=== PATIENT | male | born 1945 | race Caucasian/White ===

== ENCOUNTER 2020-03-26 14:30 | Emergency (ER) | payer OTHER ==
[~2020-03-26] VITALS: Ht 177.8 cm; Wt 66.7 kg
[2020-03-26] MEDS ORDERED: ZESTRIL40 MG PO (14:50)
[2020-03-26] MEDS ORDERED: NORVASC5 M1 PO (14:50)
[2020-03-26] MEDS ORDERED: OMEPRAZOLE40 MG PO (14:51)
[2020-03-26] MEDS ORDERED: LIPITOR 20 MG T20 M1 PO (14:51)
[2020-03-26] MEDS ORDERED: TOPROL XL50 MG PO (14:51)
[2020-03-26] MEDS ORDERED: SINGULAIR 10 MG10 M1 PO (14:52)
[2020-03-26] MEDS ORDERED: FOLIC ACID1 MG PO (14:52)
[2020-03-26 15:19] LABS: ABSOLUTE BASOPHILS 0.1 thou/uL (0.0-0.2); ABSOLUTE EOSINOPHILS 0.1 thou/uL (0.0-0.7); ABSOLUTE LYMPHOCYTES 1.5 thou/uL (0.8-5.3); ABSOLUTE MONOCYTES 0.9 thou/uL (0.0-1.2); ABSOLUTE NEUTROPHILS 6.1 thou/uL (1.6-8.1); BASOPHILS 0.7 %; EOSINOPHILS 1.5 %; HEMATOCRIT 44.8 % (42.0-52.0); HEMOGLOBIN 15.3 gm/dL (14.0-18.0); LYMPHOCYTES 17.4 %; MCH 29.9 pg (26.0-34.0); MCHC 34.1 g/dL (28.0-37.0); MCV 87.6 fL (80.0-100.0); MONOCYTES 10.3 %; MPV 8.7 fl. (7.2-11.1); NUCLEATED RBCS 0 /100WBC; PLATELET COUNT* 159 thou/uL (150-400); POLYS 70.1 %; RBC 5.12 mil/uL (4.50-6.00); RDW-CV 13.2 % (10.5-14.5); WBC 8.8 thou/uL (4.0-11.0)
[2020-03-26 15:23] LABS: CALCIUM 8.2 mg/dL (8.5-10.1); CREATININE 0.8 mg/dL (0.6-1.3)
[2020-03-26 15:28] LABS: ALBUMIN 3.4 g/dL (3.4-5.0); TOTAL BILIRUBIN 0.4 mg/dL (<0.1-1.0); TOTAL PROTEIN 7.1 g/dL (6.4-8.2)
[2020-03-26 15:44] VITALS: BP 154/74
--- NOTE | 2020-03-26 17:41 | EKG ---
[place] [address] ELECTROCARDIOGRAM REPORT Name: GRISELDA GIANG Room: [facility]#: [id number] Admission: 03/26/20 Attend Phys: Discharge: 03/26/20 Date of : 47 Date of Service: 03/26/20 1511 Report #: [id number] THIS REPORT FOR: //name// [facility] ED Test Date: 2020-03-26 Test Time: 15:11:55 Pat Name: GRISELDA GIANG Department: Room: Gender: Messenger Floorperson: : [id number] Requested By: Carlos Cabezas Order Number: [id number] MD: Pepe Chun Measurements Intervals [place] Rate: 71 P: 52 NC: 179 QRS: 45 QRSD: 107 T: 61 QT: 440 QTc: 479 Interpretive Statements Sinus rhythm Minimal ST depression, anterolateral leads No previous ECG available for comparison Electronically Signed On 03-26-2020 17:41:20 [employer] by Pepe Chun [email or web address] <ELECTRONICALLY SIGNED> By: Pepe Chun MD, [facility] 03/26/20 1741 1511 151 Pepe Chun MD, [facility] /EPI
== END 2020-03-26 15:44 | disposition home or self-care (01) ==
LOC: M.ERS 14:30
PROVIDERS: Family Medicine
DX: R06.02 Shortness of breath (principal); T50.Z95A Adverse effect of other vaccines and biological substances, initial encounter; R42 Dizziness and giddiness; R53.81 Other malaise; R22.0 Localized swelling, mass and lump, head; Z95.5 Presence of coronary angioplasty implant and graft; Z79.899 Other long term (current) drug therapy; Y92.89 Other specified places as the place of occurrence of the external cause